=== PATIENT | female | born 1935 | race Caucasian/White ===

== ENCOUNTER 2023-07-20 17:19 | Inpatient (IN) | payer MEDICARE, MEDICAID, SELFPAY ==
[2023-07-20 12:48] VITALS: BP 168/78; BMI 16.8
--- NOTE | 2023-07-20 13:52 | ED.GENMED ---
History of Present Illness
General
Chief Complaint: Fever
Source: career development associate
Time Seen by Provider: 07/20/23 13:24
Travel History
Have you had any contact with someone who has COVID-19?: Unable to Answer
Do you have any symptoms of coronavirus? Fever > 100 degrees, chills, cough, shortness of breath, sore throat, loss of taste or smell, muscle aches, or headache?: Unable to Answer
History of Present Illness
History of Present Illness:
87-year-old female presenting to the ER from family and friends with her nurse and caregiver for evaluation of a fever, cough and shortness of breath that started over the last 36 hours. Patient was treated for urinary tract infection with Bactrim
for the last 10 days and finished this antibiotic on Thursday. No known sick contacts. Patient unable to provide any history secondary to baseline mental status. Staff reports patient is right around her baseline but does seem a little bit more
agitated than usual.
Past History
Past History
ED Past Medical History: Psychiatric (Dementia) and Other (Mild mental retardation, major depression, anorexia in remission , subdural hematoma)
ED Past Surgical History: Tonsilectomy and Other
Social History
Tobacco: Non-smoker
Alcohol: None
Drug: None
Personal: Other
Living: assisted living
Employment: Not employed
Family History
Family History: Hypertension
Review of Systems
Review of Systems
All Other Systems: ROS reviewed and negative except as documented in HPI and ROS
Phy Exam
Physical Exam
Physical Exam:
GENERAL: Alert , Intermittent nonproductive cough noted, hot to the touch
EYE: conjunctiva clear
NECK: Supple,
ENT: o/p clr, mmm.
CARDIAC: Tachycardic rate and rhythm, no murmur
LUNGS: Clear breath sounds bilaterally, n tachypneic, no wheezes/rales/rhonchi
NEUROLOGICAL: Alert but does not answer questions
SKIN: Warm and dry, skin intact.
MUSCULOSKELETAL: well perfused.
PSYCH: Unable to assess
Scores
Heart Failure Risk
Heart Failure Risk Score: Not Applicable
Heart Score for Chest Pain Patients
STEMI patient?: Not applicable
Withdrawal Assessment of Alcohol
Withdrawal Assessment Completed?: Not applicable
Course
Orders/Labs/Results
Orders:
Orders
07/20/23 13:14
Electrocardiogram (*1) Urgent
Reason for Study: Other
Other Reason for Exam: Possible Sepsis
07/20/23 13:15
EKG- Treatment ONCE
CR Chest Single View Urgent
Reason For Exam: suspected infection
07/20/23 13:42
Basic Metabolic Panel Urgent
COVID-19 Antigen Urgent
Source: Nasal Swab
Complete Blood Count/With Diff Urgent
Lactic Acid Q4H
Comment: ON ICE, CANCEL 2ND ORDER IF FIRST LACTIC ACID LEVEL <2
Blood Culture Q30M
JEET Source: Blood/Venous
Specimen Description:
Comment: FROM 2 SEPARATE SITES
Blood Culture Q30M
JEET Source: Blood/Venous
Specimen Description:
Comment: FROM 2 SEPARATE SITES
Influenza A+B Rapid Molecular Urgent
JEET Source: Nasal Swab
Specimen Description:
07/20/23 13:56
Acetaminophen 1000MG/100Ml [Ofirmev] 1,000 mg in 100 ml IV ONCE
Acetaminophen IV Indication:: No IA & No Enteral Access
07/20/23 14:51
CMP [Comprehensive Metabolic Panel] Urgent
07/20/23 15:14
Cefepime HCl [Maxipime] 2,000 mg IV NOW STA
07/20/23 15:49
Vancomycin 1 Gram/200 ml [Vancocin] 1 gram in 200 ml IV NOW
07/20/23 16:09
Admit/Transfer Patient As Directed
Co-Sign Provider:
Level of Care: Inpatient admission
Assign to:: Telemetry
Physician / Group: marcial
Diagnosis: acute hypoxia
Reason for Telemetry: Other
Other Reason for Telemetry: sepsis
Date to Stop Telemetry: 07/22/23
Time to Stop Telemetry: 11:00
Reason for Hospitalization: acute hypoxia
Expected length of stay greater than two midnights?: Yes
ELOS- Estimated Length of Stay in days: 3
I certify the patient meets the requirements for IP care: Yes
Troponin I Stat
07/20/23 16:11
Code Status As Directed
Resuscitation Status: Full Code
07/20/23 16:24
NT-proBNP Urgent
07/20/23 17:15
Lactic Acid Q4H
Comment: ON ICE, CANCEL 2ND ORDER IF FIRST LACTIC ACID LEVEL <2
07/22/23 11:00
DC Protocol for Telemetry ONCE
Abnormal Lab Results
07/20/23 07/20/23
13:42 14:51
WBC 18.6 H 10^3/uL
(4.8-10.8)
RBC 3.93 L 10^6/uL
(4.20-5.40)
Hct 35.8 L %
(37.0-47.0)
MPV 12.5 H fL
(7.4-10.4)
Abs Immat Gran (auto) 0.1 H 10^3/uL
(0-0.05)
Absolute Neuts (auto) 16.9 H 10^3/uL
(1.4-6.5)
Absolute Lymphs (auto) 0.6 L 10^3/uL
(1.2-3.4)
Absolute Monos (auto) 0.9 H 10^3/uL
(0.1-0.6)
Neutrophils % 91.0 H %
(42.2-75.2)
Lymphocytes % 3.2 L %
(20.5-51.1)
BUN 25 H mg/dl 25 H mg/dl
(7-17) (7-17)
Glucose 123 H mg/dl 157 H mg/dl
(70-99) (70-99)
07/20/23 13:42
07/20/23 14:51
Vital Signs
Initial and Last Documented VS:
Initial Vital Signs
Temp Pulse Resp BP Pulse Ox
101.1 F H 110 16 168/78 86
07/20/23 12:48 07/20/23 12:48 07/20/23 12:48 07/20/23 12:48 07/20/23 12:48
Last Documented Vital Signs
Temp Pulse Resp BP Pulse Ox
101.1 F H 105 21 168/78 95
07/20/23 12:48 07/20/23 16:15 07/20/23 16:15 07/20/23 12:48 07/20/23 16:15
MDM/Problems Addressed
Differential Diagnosis Includes:
COVID, flu, pneumonia, aspiration, recurring UTI, bacteremia
MDM/Problems Addressed:
87-year-old female presenting emergency department for evaluation of fever, cough and reported shortness of breath. Pulse ox in triage was noted to be 86% on room air and patient was placed on 2 L via nasal cannula which is around 92 to 93% on my
exam. Patient is somewhat agitated but consolable by caregiver and nurse. She is febrile here so we will treat with Ofirmev as patient is not able to tolerate p.o. Concern for possible aspiration. Chest x-ray ordered. Anticipate admission.
Chronic conditions affecting care: Neurological disorder
Acute Exacerbation and/or Progression of Chronic Illness: Neurological disorder
*Radiology
Radiology exam reviewed: preliminary read by ED provider (TANYA greenwood)
*Pulse Oximetry
Patient hypoxic: yes
*EKG
Interpreted by ED Provider?: Yes
Heart Rate: 119
Rate: tachycardiac
Rhythm: sinus and PVC's
*Critical Care Note
Total Time (30-74mins, 75-104mins- exclusive of procedures): Not Applicable
Patient Management
Discussion with other providers: Hospitalist
Escalation/DeEscalation of care consider admission/obs:
Chest x-ray shows a right lower lobe pneumonia. Given her hypoxia combined with fever and leukocytosis with a leftward shift decision was ultimately made to admit patient with IV antibiotics and supportive care with oxygen. Hospitalist team is
aware and accepts for continued evaluation and treatment.
ED Attending Note
-
Portions of this chart may have been created with voice recognition software.� Occasional wrong word or��sound alike� substitutions may have occurred due to the inherent limitations of voice recognition software.
Discharge Plan
Departure
Patient Disposition: Admit
Date of Disposition: 07/20/23
Time of Disposition: 15:14
Presentation/result/management discussed w/ accepting MD/DO: Hospitalist
Discharge Problem:
Pneumonia, Hypoxia
Interventions
Interventions:
*Risk Screen - Suicide Last Done: 07/20/23 14:40
*General Assessment Last Done: 07/20/23 12:48
*Neglect/Abuse Screening Last Done: 07/20/23 12:48
*ED COVID-19 Vaccine History Last Done: 07/20/23 12:48
ED- Neurological Assessment Last Done: 07/20/23 13:07
ED-Skin Assessment Last Done: 07/20/23 13:07
[2023-07-20 13:54] LABS: % Basophils 0.3 % (0-2); % Eosinophils 0.4 % (0-6); % Immature Granulocytes 0.4 % (0-0.5); % Lymphocytes 3.2 % (20.5-51.1); % Monocytes 4.7 % (1.7-9.3); Absolute Basophils 0.1 10^3/uL (0-0.2); Absolute Eosinophils 0.1 10^3/uL (0-0.7); Absolute Immature Granulocytes 0.1 10^3/uL (0-0.05); Absolute Lymphocytes 0.6 10^3/uL (1.2-3.4); Absolute Monocytes 0.9 10^3/uL (0.1-0.6); Absolute Neutrophils 16.9 10^3/uL (1.4-6.5); Hematocrit 35.8 % (37.0-47.0); Hemoglobin 12.1 g/dL (12.0-16.0); Mean Corp Hgb Conc. 33.8 g/dL (33.0-37.0); Mean Corpuscular Hgb 30.8 pg (27.0-31.0); Mean Corpuscular Volume 91.1 fL (81.0-99.0); Mean Platelet Volume 12.5 fL (7.4-10.4); Nucleated Red Blood Cells % 0 %; Platelet Count 203 10^3/uL (130-400); Red Blood Cell Count 3.93 10^6/uL (4.20-5.40); Red Cell Dist. Width 13.6 % (11.5-14.5); White Blood Cell Count 18.6 10^3/uL (4.8-10.8)
[2023-07-20] MEDS: OFIRMEV 100 IV (14:04)
[2023-07-20 14:09] LABS: COVID-19 Antigen Negative (Negative)
[2023-07-20 14:15] LABS: Blood Urea Nitrogen 25 mg/dl (7-17); Calcium 9.5 mg/dl (8.4-10.2); Carbon Dioxide 27 mmol/L (22-30); Chloride 107 mmol/L (98-107); Estimated Creatinine Clearance 33 ml/min; Glucose 123 mg/dl (70-99); eGFR > 60.00
[2023-07-20 14:41] LABS: Sodium 139 mmol/L (135-145)
[2023-07-20 15:33] LABS: ALT (SGPT) 18 U/L (0-35); AST (SGOT) 28 U/L (14-36); Albumin 3.6 g/dl (3.5-5.0); Alkaline Phosphatase 74 U/L (38-126); Blood Urea Nitrogen 25 mg/dl (7-17); Calcium 9.3 mg/dl (8.4-10.2); Carbon Dioxide 25 mmol/L (22-30); Chloride 107 mmol/L (98-107); Estimated Creatinine Clearance 29 ml/min; Glucose 157 mg/dl (70-99); Potassium 4.6 mmol/L (3.5-5.1); Sodium 139 mmol/L (135-145); Total Bilirubin 0.5 mg/dl (0.2-1.3); Total Protein 6.8 g/dl (6.3-8.2); eGFR > 60.00
--- NOTE | 2023-07-20 15:44 | HPS.HSE ---
Family Physician
-
Family Physician: INTERVIEWE UNKNOWN - PT NOT
Chief Complaint
-
cough
fever
History of Present Illness
87-year-old female with PMH for dementia, MR, depression, subdural hematoma presented to us with fever, cough. Patient finished a course of Bactrim on Thursday for UTI . Patient was noted agitated since Thursday night . On Thursday she had a fever of
101. Worsening agitation. Patient was also noted to have cough. Surgical Pathologist noticed wheezing. Review of system limited. History obtained from sealer aircraft.
Patient was hypoxic on arrival. Initiated on 2 L chest x-ray with pneumonia. Patient received Maxipime and Vanco in the ER. Admitting for further management
Medical History
Past Medical History
Past Medical History: Reports Other
Additional Past Medical History:
History of ductal carcinoma of breast
Constipation
Anorexia
Depression
Mild mental retardation
Past Surgical History: Reports Other
Additional Past Surgical History:
Right breast mastectomy
Tonsillectomy
Social History
Tobacco: Non-smoker
Alcohol: None
Drug: None
Family History
Family History: Not pertinent
Allergies / Home Medications
Allergies reflects when Allergies were last updated in [facility].
Home Medications with original date entered in [facility]
Allergy/Medication List:
Allergies
Allergy/AdvReac Type Severity Reaction Status Date / Time
No Known Allergies Allergy Verified 07/20/23 13:06
Home Medications
ascorbic acid (vitamin C) 500 mg tablet (Vitamin C) 500 mg PO DAILY 11/18/16
calcium carbonate 500 mg-vitamin D3 5 mcg (200 unit) tablet (Oyster Shell Calcium-Vitamin D3) 0.5 ea PO QID 11/18/16
docusate sodium 100 mg capsule 100 mg PO BID 11/18/16
donepezil 5 mg tablet 5 mg PO HS 11/18/16
guaifenesin 600 mg tablet, extended release 12 hr (Mucinex) 600 mg PO BIDPRN PRN congestion 11/18/16
lorazepam 0.5 mg tablet 0.5 mg PO HS 11/18/16
olanzapine 2.5 mg tablet 5 mg PO QPM 11/18/16
paroxetine HCl 20 mg tablet 20 mg PO DAILY@1600 11/18/16
salicylic acid-sulfur 2 %-2 % shampoo (Sebex) 1 applic topical DAILYPRN PRN scalp 11/18/16
acetaminophen 325 mg tablet (Tylenol) 650 mg PO Q4HPRN PRN MILD PAIN 07/20/23
carboxymethylcellulose 0.5 %-glycerin 0.9 % eye drops (Refresh Optive) 1 drp BOTH EYES 5/D PRN DRY EYE 07/20/23
dextromethorphan-guaifenesin 10 mg-100 mg/5 mL oral syrup 10 ml PO Q4HPRN PRN COUGH 07/20/23
polyethylene glycol 3350 17 gram oral powder packet (Miralax) 17 g PO DAILYPRN PRN CONSTIPATION 07/20/23
sulfamethoxazole 800 mg-trimethoprim 160 mg tablet (Bactrim DS) 1 tab PO BID 07/20/23
Review of Systems
-
Constitutional: Reports Fever
Respiratory: Reports No Symptoms and Cough
Physical Exam
Vital Signs
Vital Signs
Temp Pulse Resp BP Pulse Ox
101.1 F H 108 28 168/78 97
07/20/23 12:48 07/20/23 15:00 07/20/23 15:00 07/20/23 12:48 07/20/23 15:00
Physical Exam
General: Well Developed, Well Nourished and No Apparent Distress
HEENT: NormoCephalic, Moist mucous membranes and Atraumatic
Respiratory: Clear
Cardiac: S1/S2 and Regular Rhythm; No Murmur or Rub
GI: Soft, Non Tender, Non Distended and Normal Bowel Sounds; No Organomegaly
Rectal: Deferred by Provider
Musculoskeletal: No Clubbing, No Cyanosis and No Edema
Skin: No Rash
Neuro: AO x 3 and Nonfocal/grossly intact
Psych: Calm
Laboratory Results
-
07/20/23 13:42
07/20/23 14:51
Laboratory Results
Lactic Acid 2.0 mmol/L (0.7-2.0) 07/20/23 13:42
Total Bilirubin 0.5 mg/dl (0.2-1.3) 07/20/23 14:51
AST 28 U/L (14-36) 07/20/23 14:51
ALT 18 U/L (0-35) 07/20/23 14:51
Alkaline Phosphatase 74 U/L (38-126) 07/20/23 14:51
Data Reviewed
-
Lab Data: Labs Reviewed by me
Impression/Plan
-
#acute hypoxic respiratory failure likely from right lower lobe pneumonia likely aspiration
-sepsis as evident by wbc 18.6, temp 101.1
-covid negative, flu negative
-chest x ray with Probable mild right lower lobe atelectasis versus scarring. Developing pneumonia not excluded. New.Mild cardiomegaly. Progressed.
-blood culture sent from ER
-IV cefepime and Maxipime continued
-Tylenol as needed for fever
-Obtain MRSA
-Continue supplemental oxygen to keep sat greater than 92
-Wean as tolerated
-Speech consulted
-nebs prn for sob/wheezing
# Mild cardiomegaly
-Obtain BNP
-Obtain echocardiogram
-Obtain Trope
# Dementia
-Aricept continued
-One-to-one in place
# depression
-Lorazepam, olanzapine, Paxil continued
# DVT prophylaxis
-Lovenox
# CODE STATUS
-Full code
[2023-07-20] MEDS: MAXIPIME 2000 MG IV (16:30)
[2023-07-20 17:09] LABS: NT-proBNP 403 pg/ml
[2023-07-20] MEDS: VANCOCIN 200 IV (17:10)
--- NOTE | 2023-07-20 18:09 | W.PN.UPDATE ---
Update Note
Progress Note Update
This note serves as an addendum to the H&P by SAM Reilly, on July 20, 2023.
87-year-old female with past medical history for dementia, MR, depression, subdural hematoma presented with fever and cough. Patient had just finished a course of Bactrim 3 days ago for urinary tract infection. Patient was noted to be agitated for
the past 2-3 days. Two days ago, patient had a fever of 101 F. Worsening agitation. Patient was also noted to have cough. Oncology Registrar noticed wheezing. Review of system limited. History obtained from customer experience specialist.
Patient was hypoxic on arrival. Initiated on 2 L oxygen with chest x-ray with possible pneumonia in the right lower lobe. Patient received Maxipime and Vanco in the ER.
Vitals
Temp elevated at 101.1 F
HR intermittently tachycardic
BP okay
Mildly tachypneic
Oxygen saturation in the 90s on 4 L
Physical Exam
General: Well Developed, Well Nourished and No Apparent Distress
HEENT: Normocephalic, Moist mucous membranes
Respiratory: Clear
Cardiac: S1/S2 and Regular Rhythm
GI: Soft, Non Tender, Non Distended and Normal Bowel Sounds
Musculoskeletal: No Cyanosis and No Edema
Skin: Warm. Dry.
Neuro: AO x 3 and Nonfocal/grossly intact
Psych: Calm
Assessment/Plan
#acute hypoxic respiratory failure likely from right lower lobe pneumonia likely aspiration
#Suspected sepsis
-covid negative, flu negative
-chest x ray as per radiologist's report with Probable mild right lower lobe atelectasis versus scarring. Developing pneumonia not excluded. New.Mild cardiomegaly. Progressed.
-Follow blood cultures
-IV cefepime and Vancomycin continued
-Tylenol as needed for fever
-Obtain MRSA
-Continue supplemental oxygen to keep sat greater than 92
-Wean as tolerated
-Speech consulted
-nebs prn for sob/wheezing
-Check CT for PE given tachycardia
# Mild cardiomegaly - progressed -- as per CRX
-Obtain BNP
-Obtain echocardiogram
-Check troponins
# Dementia
-Aricept continued
-One-to-one in place
# depression
-Lorazepam, olanzapine, Paxil continued
# DVT prophylaxis
-Lovenox
# CODE STATUS
-Full code
[2023-07-20 18:45] LABS: Lactic Acid 1.5 mmol/L (0.7-2.0)
[2023-07-20 19:00] VITALS: BMI 15.6
[2023-07-20 19:15] VITALS: BP 148/81
--- NOTE | 2023-07-20 19:28 | PHA.VAN.IN ---
Assessment
- Assessment
Renal Function: Appears similar to baseline
Concomitant Antimicrobials: CEFEPIME
- Previous Dosing Experience
Previous Regimen: NONE
Plan
- Plan
Initial / Loading Dose: 1GM
Maintenance Regimen: DOSING BY RANDOM LEVELS
Monitoring: RANDOM VANCOMYCIN LEVEL 07/21/23 AM
Pharmacokinetics Vancomycin I
- -
Patient Age: 87
Patient Sex: Female
Vancomycin Day #: 1
Indication: Pulmonary/Respiratory (SEPSIS)
Requesting Provider: MI
Height / Weight:
Height 5 ft 3 in
Actual Weight 43.1 kg
- Vital Signs / Lab Results
Temp Pulse Resp BP Pulse Ox
101.1 F H 81 18 168/78 96
07/20/23 12:48 07/20/23 18:36 07/20/23 18:36 07/20/23 12:48 07/20/23 18:36
Lab Results - Hematology
07/20/23
13:42
WBC 18.6 H
Lab Results - Chemistry
07/20/23 07/20/23
13:42 14:51
BUN 25 H 25 H
Creatinine 0.8 0.9
Estimated Creat Clear 33 29
Albumin Cancelled 3.6
07/20/23 07/20/23
13:42 18:28
Lactic Acid 2.0 1.5
Microbiology Results
07/20/23 13:42 Influenza Types A & B (GARETH) - Final
Nasal Swab Negative for Influenza A & B, NAAT
Negative results must be combined with clinical observations
and patient history.
Nucleic Acid Amplification test (NAAT)performed on the
[employer] platform.
[2023-07-20] MEDS: LOVENOX 30 MG SC (19:48)
[2023-07-20] MEDS: ZYPREXA 5 MG PO (19:50)
[2023-07-20] MEDS: COLACE 100 MG PO (19:50)
[2023-07-20 20:58] LABS: Troponin I 0.022 ng/ml
[2023-07-20] MEDS: ATIVAN 0.5 MG PO (21:47)
[2023-07-20] MEDS: ARICEPT 5 MG PO (21:48)
[2023-07-20 23:41] VITALS: BP 112/70
[2023-07-21 04:07] VITALS: BP 175/60
[2023-07-21] MEDS: STERILE WATER FOR INJECTION 10 ML IV ×2 (04:54→16:25)
[2023-07-21] MEDS: MAXIPIME 1000 MG IV ×2 (04:54→16:25)
[2023-07-21 06:27] LABS: Hemoglobin 11.6 g/dL (12.0-16.0); Mean Corp Hgb Conc. 34.1 g/dL (33.0-37.0); Mean Corpuscular Hgb 30.3 pg (27.0-31.0); Mean Corpuscular Volume 88.8 fL (81.0-99.0); Red Blood Cell Count 3.83 10^6/uL (4.20-5.40); Red Cell Dist. Width 13.5 % (11.5-14.5); White Blood Cell Count 10.2 10^3/uL (4.8-10.8)
[2023-07-21 06:52] LABS: Blood Urea Nitrogen 17 mg/dl (7-17); Carbon Dioxide 22 mmol/L (22-30); Chloride 112 mmol/L (98-107); Estimated Creatinine Clearance 41 ml/min; Glucose 82 mg/dl (70-99); Potassium 3.9 mmol/L (3.5-5.1); Sodium 137 mmol/L (135-145); Vancomycin Random 9.5 ug/ml; eGFR > 60.00
--- NOTE | 2023-07-21 08:19 | PHA.VAN.FU ---
Vancomycin Assessment / Plan
- Assessment
Renal Function: SCR Decreasing
WBC's are: WNL
Concomitant Antimicrobials: cefepime
- Assessment - Therapeutic Drug Monitoring
Random Level: 9.5 - drawn ~12.5H after initial dose of 1000mg
- Dosing Plan
Dosing by Level: Re-dose today (Vanc 750mg)
Patient may have enhanced clearance due to BMI < 20 compared to population PK
Will trial 750mg x1 today based on IBW and CrCl(IBW) ~53 ml/min predicting AUC 436, trough 10 with 750mg Q24H
Will follow as dose by level for now, given age, to ensure clearing appropriately with dosing based on IBW
- Monitoring Plan
Random Level: 07/21 06
- Follow Up
Pharmacy will continue to follow.
Vancomycin Follow UP
- -
Patient Age: 87
Patient Sex: Female
Vancomycin Day #: 2
Indication: Pulmonary/Respiratory
Requesting Provider: Nicole Will
Pertinent Antimicrobial Allergies:
NKDA
Height / Weight:
Height 5 ft 3 in
Actual Weight 40.001 kg
IBW in k.4
Pertinent Past Medical History: BMI ~15.6
- Vital Signs / Lab Results
Temp Pulse Resp BP Pulse Ox
97.2 F 75 18 175/60 93
07/21/23 04:07 07/21/23 04:07 07/21/23 04:07 07/21/23 04:07 07/21/23 04:07
Lab Results - Hematology
07/20/23 07/21/23
13:42 05:34
WBC 18.6 H 10.2
Lab Results - Chemistry
07/20/23 07/20/23 07/21/23
13:42 14:51 05:34
BUN 25 H 25 H 17
Creatinine 0.8 0.9 0.6
Estimated Creat Clear 33 29 41
Albumin Cancelled 3.6
07/20/23 07/20/23
13:42 18:28
Lactic Acid 2.0 1.5
Microbiology Results
07/21/23 05:18 Legionella Urinary Antigen - Final
Urine Negative for Legionella pneumophila Serogroup 1 antigen.
A negative result does not rule out the possiblity of
Legionella infection due to other serogroups or species of
Legionella. Clinical correlation is recommended.
07/20/23 13:42 Influenza Types A & B (GARETH) - Final
Nasal Swab Negative for Influenza A & B, NAAT
Negative results must be combined with clinical observations
and patient history.
Nucleic Acid Amplification test (NAAT)performed on the
[employer] platform.
Therapeutic Drug Monitoring
Random Vancomycin 9.5 ug/ml 07/21/23 05:34
--- NOTE | 2023-07-21 08:30 | PTOTSP ---
Speech Language Pathology
Pt seen for clinical bedside swallow evaluation. Pt moving constantly, blocking caregiver, but then opening mouth. Caregiver provided tsps of puree, up to 3 at a time before swallow initiated, which she stated is typical. Audible swallow
frequently noted, likely indicative of incoordination. Caregiver reported she drinks from a cup at home, so she provided liquid via cup. Frequently noted to pour into pt's oral cavity without active acceptance. Cough x2. Trialed via tsp with
improved tolerance.
Pt is at a high risk for aspiration. Per caregiver, pt has not had PNA prior to current admit. She typically does not cough with P.O. but was coughing occasionally with P.O. in the last 2-3 weeks. Question whether this was related to
deconditioning from UTI. Will trial diet with increased strategies. Will consider NPO as needed, but pt would not be appropriate for PEG tube and this would significantly affect quality of life. Not appropriate for VSE given contractures and
constant movement with P.O. intake.
Recommend:
(1) Trial baseline diet of IDDSI Level 4 (Puree) and Moderately Thick Liquids VIA TSP ONLY
(2) Aspiration precautions: sit as upright as possible, slow rate, liquids via tsp, ensure pt swallows prior to next bite/sip
(3) Meds in puree
(4) JUSTOWRITER OPERATOR to continue to follow
[2023-07-21] MEDS: VANCOCIN 150 IV (10:09)
[2023-07-21] MEDS: COLACE 100 MG PO ×2 (10:09→20:19)
[2023-07-21 10:55] VITALS: BP 143/60
--- NOTE | 2023-07-21 14:16 | CM ---
Patient from [facility]
Patient seen bedside with nurse Fidelia Scott and Juana (caregiver) from [facility].
Patient is total care.
Patient is lifted to or recliner.
Patient does receive therapy [facility], will need a script on d/c.
PCP: Dr Henrik Ridley
Pharmacy: [facility]
Plan: Back to [facility].
Prior to returning to facility clinicals will need to be be faxed to Fidelia at [facility] at F# [phone]
Tamara phone # [phone] or main number [phone]
No weekend admissions.
[2023-07-21 15:00] VITALS: BP 140/76
--- NOTE | 2023-07-21 15:55 | W.PN.HOSP.TC ---
Today's Communication/Plan
-
Doing better
Continue antibiotics
Assessment / Plan
Assessment / Plan
Physical Exam
General: Not in acute distress
HEENT: Normocephalic
Respiratory: Clear to Auscultation Bilaterally
Cardiac: S1/S2 and Regular Rhythm
GI: Soft, Non Tender, Non Distended and Normal Bowel Sounds
Musculoskeletal: No Cyanosis and No Edema
Skin: Warm. Dry.
Neuro: AO x 3 and Nonfocal/grossly intact
Psych: Calm
Assessment/Plan
#acute hypoxic respiratory failure likely from right lower lobe pneumonia likely aspiration
#Suspected sepsis
-covid negative, flu negative
-chest x ray as per radiologist's report with Probable mild right lower lobe atelectasis versus scarring. Developing pneumonia not excluded. New.Mild cardiomegaly. Progressed.
-Follow blood cultures
-Follow-up MRSA screen
-IV cefepime and Vancomycin continued
-Tylenol as needed for fever
-Continue supplemental oxygen to keep sat greater than 92
-Wean as tolerated
-Speech consulted, recommendations appreciated
-nebs prn for sob/wheezing
# Mild cardiomegaly - progressed -- as per CRX
-BNP 403 -- does not suggest acute heart failure
-Obtain echocardiogram
-Troponin negative
# Dementia
-Aricept continued
-One-to-one in place
# depression
-Lorazepam, olanzapine, Paxil continued
# DVT prophylaxis
-Lovenox
# CODE STATUS
-Full code
Anticipated Discharge: 24 - 48 hours
Subjective/Interval History
-
Date of Service: July 21, 2023
Patient was seen and examined. She appeared more alert today, patient's fire support specialist was present in the room and said that patient appeared to be doing much better.
Objective Data
-
Labs:
Laboratory Results
07/21/23
05:34
WBC 10.2
Hgb 11.6 L
Hct 34.0 L
Plt Count
Sodium 137
Potassium 3.9
Chloride 112 H
Carbon Dioxide 22
BUN 17
Creatinine 0.6
Glucose 82
Calcium 9.0
Vital Signs:
Vital Signs
Temp Pulse Resp BP Pulse Ox
97.9 F 68 19 140/76 97
07/21/23 15:00 07/21/23 15:00 07/21/23 15:00 07/21/23 15:00 07/21/23 15:00
[2023-07-21] MEDS: PAXIL 20 MG PO (16:25)
[2023-07-21] MEDS: ZYPREXA 5 MG PO (17:54)
[2023-07-21] MEDS: LOVENOX 30 MG SC (17:55)
[2023-07-21 19:30] VITALS: BP 108/54
[2023-07-21] MEDS: ARICEPT 5 MG PO (20:20)
[2023-07-21] MEDS: ATIVAN 0.5 MG PO (20:20)
[2023-07-21 23:29] VITALS: BP 122/70
[2023-07-22 03:05] VITALS: BP 147/73
[2023-07-22] MEDS: MAXIPIME 1000 MG IV (03:25)
[2023-07-22] MEDS: STERILE WATER FOR INJECTION 10 ML IV (03:26)
[2023-07-22 06:00] LABS: % Basophils 0.5 % (0-2); % Eosinophils 5.5 % (0-6); % Immature Granulocytes 0.3 % (0-0.5); % Lymphocytes 11.7 % (20.5-51.1); Absolute Basophils 0.1 10^3/uL (0-0.2); Absolute Eosinophils 0.5 10^3/uL (0-0.7); Absolute Lymphocytes 1.1 10^3/uL (1.2-3.4); Absolute Monocytes 0.9 10^3/uL (0.1-0.6); Absolute Neutrophils 6.6 10^3/uL (1.4-6.5); Hematocrit 34.4 % (37.0-47.0); Hemoglobin 11.5 g/dL (12.0-16.0); Mean Corp Hgb Conc. 33.4 g/dL (33.0-37.0); Mean Corpuscular Hgb 30.2 pg (27.0-31.0); Mean Corpuscular Volume 90.3 fL (81.0-99.0); Mean Platelet Volume 12.8 fL (7.4-10.4); Nucleated Red Blood Cells % 0 %; Platelet Count 177 10^3/uL (130-400); Red Blood Cell Count 3.81 10^6/uL (4.20-5.40); Red Cell Dist. Width 13.4 % (11.5-14.5); White Blood Cell Count 9.1 10^3/uL (4.8-10.8)
[2023-07-22 06:08] LABS: Vancomycin Random 9.1 ug/ml
[2023-07-22 06:22] LABS: Blood Urea Nitrogen 18 mg/dl (7-17); Glucose 92 mg/dl (70-99)
[2023-07-22 06:23] LABS: Calcium 9.2 mg/dl (8.4-10.2); Carbon Dioxide 26 mmol/L (22-30); Chloride 107 mmol/L (98-107); Estimated Creatinine Clearance 35 ml/min; Magnesium 2.2 mg/dl (1.6-2.3); Potassium 4.5 mmol/L (3.5-5.1); Sodium 138 mmol/L (135-145); eGFR > 60.00
[2023-07-22] MEDS: COLACE 100 MG PO ×2 (09:02→20:15)
[2023-07-22 11:00] VITALS: BP 125/73
--- NOTE | 2023-07-22 12:07 | CM ---
Addendum entered by Matilda Evans 07/22/23 16:23:
TC back form [facility], willing to accept patient back tomorrow.
IMM reviewed with Fidelia via phone 4:20 pm.
Addendum entered by Matilda Evans 07/22/23 12:53:
Left vm re possible d/c back today, need to know if patient is accepted.
Await TCB from [facility].
Original Note:
TC from [facility] requesting updates.
Left VM for [facility]ia and Clinicals faxed.
Patient continues on IV anbx.
No skilled needs.
Private manager wound care in room.
Plan: Back to [facility].
Prior to returning to facility clinicals will need to be be faxed to Fidelia at [facility] at F# [phone]
Tamara phone # [phone] or main number [phone]
No weekend admissions.
--- NOTE | 2023-07-22 14:49 | W.PN.HOSP.TC ---
Addendum entered and electronically signed by Homer Diaz MD 07/22/23 14:58:
Switch antibiotics to Cefdinir 300mg PO BID.
Original Note:
Today's Communication/Plan
-
Continue antibiotics
Overall doing better
Discharge planning, showcase maker is working on it
Assessment / Plan
Assessment / Plan
Physical Exam
General: Not in acute distress
HEENT: Normocephalic
Respiratory: Clear to Auscultation Bilaterally
Cardiac: S1/S2 and Regular Rhythm
GI: Soft, Non Tender, Non Distended and Normal Bowel Sounds
Musculoskeletal: No Cyanosis and No Edema
Skin: Warm. Dry.
Neuro: Baseline confusion. Nonfocal/grossly intact
Psych: Apparent dementia
Assessment/Plan
#acute hypoxic respiratory failure likely from right lower lobe pneumonia likely aspiration
#Suspected sepsis
-covid negative, flu negative
-chest x ray as per radiologist's report with Probable mild right lower lobe atelectasis versus scarring. Developing pneumonia not excluded. New.Mild cardiomegaly. Progressed.
-Follow blood cultures
-MRSA screen negative --> therefore stopped IV Vancomycin
-Tylenol as needed for fever
-Continue supplemental oxygen to keep sat greater than 90
-Wean as tolerated
-Speech consulted, recommendations appreciated
-nebs prn for sob/wheezing
# Mild cardiomegaly - progressed -- as per CRX
-BNP 403 -- does not suggest acute heart failure
-Echocardiogram noted
-Troponin negative
# Dementia
-Aricept continued
-One-to-one in place
# depression
-Lorazepam, olanzapine, Paxil continued
# DVT prophylaxis
-Lovenox
# CODE STATUS
-Full code
Anticipated Discharge: Within 24 hours
Subjective/Interval History
-
Date of Service: July 22, 2023
Patient was seen and examined. She remains altered, I spoke to reception who said patient is much improved from when she initially came in, and she mentioned that this kind of confusion is her baseline.
Objective Data
-
Labs:
Laboratory Results
07/22/23
05:27
WBC 9.1
Hgb 11.5 L
Hct 34.4 L
Plt Count 177
Sodium 138
Potassium 4.5
Chloride 107
Carbon Dioxide 26
BUN 18 H
Creatinine 0.7
Glucose 92
Calcium 9.2
Vital Signs:
Vital Signs
Temp Pulse Resp BP Pulse Ox
98.1 F 78 18 125/73 95
07/22/23 12:57 07/22/23 11:00 07/22/23 11:00 07/22/23 11:00 07/22/23 11:00
I&O
07/21/23 07/22/23 07/23/23
06:59 06:59 06:59
Intake Total 120 / 120
Balance 120 / 120
[2023-07-22 16:00] VITALS: BP 118/69
[2023-07-22 16:52] VITALS: BMI 15.6
[2023-07-22] MEDS: ZYPREXA 5 MG PO (17:34)
[2023-07-22] MEDS: LOVENOX 30 MG SC (17:34)
[2023-07-22] MEDS: PAXIL 20 MG PO (17:34)
[2023-07-22] MEDS: ARICEPT 5 MG PO (20:15)
[2023-07-22] MEDS: OMNICEF 300 MG PO (20:15)
[2023-07-22] MEDS: ATIVAN 0.5 MG PO (20:15)
[2023-07-22 23:46] VITALS: BP 116/91
[2023-07-23 07:18] LABS: Hematocrit 33.4 % (37.0-47.0); Hemoglobin 11.1 g/dL (12.0-16.0); Mean Corp Hgb Conc. 33.2 g/dL (33.0-37.0); Mean Corpuscular Hgb 30.5 pg (27.0-31.0); Mean Corpuscular Volume 91.8 fL (81.0-99.0); Platelet Count 194 10^3/uL (130-400); Red Blood Cell Count 3.64 10^6/uL (4.20-5.40); Red Cell Dist. Width 13.3 % (11.5-14.5); White Blood Cell Count 7.2 10^3/uL (4.8-10.8)
[2023-07-23 07:30] VITALS: BP 141/80
[2023-07-23 07:37] LABS: Blood Urea Nitrogen 22 mg/dl (7-17); Calcium 8.8 mg/dl (8.4-10.2); Carbon Dioxide 26 mmol/L (22-30); Chloride 112 mmol/L (98-107); Estimated Creatinine Clearance 41 ml/min; Glucose 93 mg/dl (70-99); Sodium 140 mmol/L (135-145); eGFR > 60.00
[2023-07-23] MEDS: COLACE 100 MG PO (08:08)
[2023-07-23] MEDS: OMNICEF 300 MG PO (08:08)
--- NOTE | 2023-07-23 09:05 | CM ---
Addendum entered by Matilda Evans 07/23/23 12:28:
At Home rehab

Original Note:
Plan: Back to [facility] today
Prior to returning to facility clinicals will need to be be faxed to Fidelia at [facility] at F# [phone]
[facility] phone # [phone] or main number [phone]
Ambulance transport forms completed.
All new scripts via e-script to [facility] [address]
Ambulance transport time 1 pm. Left VM for Fidelia.
[facility]
Report to Fidelia at [phone], or main number [phone]
--- NOTE | 2023-07-23 09:29 | PTCARENOTE ---
Patient received with caregiver at bedside. Responds to name but speech is garbled at times and with random words. For d/c today at 1 pm .
--- NOTE | 2023-07-23 10:52 | W.PN.HOSP.TC ---
Today's Communication/Plan
-
Discharge today
Assessment / Plan
Assessment / Plan
Physical Exam
General: Not in acute distress
HEENT: Normocephalic
Respiratory: Clear to Auscultation Bilaterally
Cardiac: S1/S2 and Regular Rhythm
GI: Soft, Non Tender, Non Distended and Normal Bowel Sounds
Musculoskeletal: No Cyanosis and No Edema
Skin: Warm. Dry.
Neuro: Baseline confusion. Nonfocal/grossly intact
Psych: Apparent dementia
Assessment/Plan
#acute hypoxic respiratory failure likely from right lower lobe pneumonia likely aspiration
#Suspected sepsis
-covid negative, flu negative
-chest x ray as per radiologist's report with Probable mild right lower lobe atelectasis versus scarring. Developing pneumonia not excluded. New.Mild cardiomegaly. Progressed.
-Follow blood cultures
-MRSA screen negative --> therefore stopped IV Vancomycin
-Tylenol as needed for fever
-Saturating well on room air
-Wean as tolerated
-Speech consulted, recommendations appreciated
-nebs prn for sob/wheezing
-On discharge, switch to Augmentin 875 Q12H for 5 more days
# Mild cardiomegaly - progressed -- as per CRX
-BNP 403 -- does not suggest acute heart failure
-Echocardiogram noted
-Troponin negative
# Dementia
-Aricept continued
-One-to-one in place
# depression
-Lorazepam, olanzapine, Paxil continued
# DVT prophylaxis
-Lovenox
# CODE STATUS
-Full code
More than 30 minutes spent in discharge including
Final examination of the patient
Summarizing hospital stay
Instructions for continuing care to all relevant caregivers
Preparation of discharge records, prescriptions, and referral forms
Total time spent (in minutes): 36
Anticipated Discharge: Today
Subjective/Interval History
-
Date of Service: July 23, 2023
Patient was seen and examined. Respiratory Care Technician reported that patient has been eating and having normal bowel movements, no new significant issues reported.
Objective Data
-
Labs:
Laboratory Results
07/23/23
07:05
WBC 7.2
Hgb 11.1 L
Hct 33.4 L
Plt Count 194
Sodium 140
Potassium 4.0
Chloride 112 H
Carbon Dioxide 26
BUN 22 H
Creatinine 0.6
Glucose 93
Calcium 8.8
Vital Signs:
Vital Signs
Temp Pulse Resp BP Pulse Ox
98.6 F 65 17 141/80 96
07/23/23 07:30 07/23/23 07:30 07/23/23 07:30 07/23/23 07:30 07/23/23 07:30
I&O
07/22/23 07/23/23 07/24/23
06:59 06:59 06:59
Intake Total 120 / 120 740 / 740
Balance 120 / 120 740 / 740
--- NOTE | 2023-07-23 11:18 | W.DS.TRANS ---
DC Summary - Assignment Manager
-
Discharge Instructions:
Discharge Diagnosis/Procedures #Acute hypoxic respiratory failure likely from
right lower lobe pneumonia likely aspiration
#Suspected sepsis
#Mild cardiomegaly on chest x-ray
#Dementia
#Depression
#Echocardiogram (done due to report of
cardiomegaly on Chest X-Ray) results, as per
cardiology report:
'CONCLUSIONS
Left ventricle is small in size.
Normal left ventricular systolic function.
Left ventricular ejection fraction is 55-60%.
Mild concentric left ventricular hypertrophy.
Normal right ventricular size and function.
Indexed LA volume is within normal range (15-34
mL/m2).
Mild mitral regurgitation.
Mild aortic stenosis.
Peak gradient 19mmHg/Mean gradient 10mmHg -
using an LVOT of 1.9cm the
estimated aortic valve area is 1.8cm2.
Trace aortic regurgitation.
Mild tricuspid regurgitation.
Estimated pulmonary artery pressure of 20-25
mmHg assuming a right atrial
pressure of 3 mmHg.
Normal pericardium and pleura without evidence
of effusion.
The IVC is of normal size and demonstrates
normal respiratory variation.
No prior echocardiogram available for comparison
'
Diet Other diet
Additional Diets IDDSI Level 4 (Puree) and Moderately Thick
Liquids VIA TSP ONLY
Blood Work Repeat CBC, CMP and Magnesium within 1 week from
hospital discharge with your outpatient
physician's office
Other Services PT,OT,VN
Instructions:
Stand-Alone Forms:
Changes to Home Medications: Yes
Discharge Medications:
DC Medications w/original date entered in [employer]
ascorbic acid (vitamin C) 500 mg tablet (Vitamin C) 500 mg PO DAILY Supplement 11/18/16
calcium carbonate 500 mg-vitamin D3 5 mcg (200 unit) tablet (Oyster Shell Calcium-Vitamin D3) 0.5 ea PO QID Supplement 11/18/16
docusate sodium 100 mg capsule 100 mg PO BID Constipation 11/18/16
donepezil 5 mg tablet 5 mg PO HS Alzheimer's 11/18/16
guaifenesin 600 mg tablet, extended release 12 hr (Mucinex) 600 mg PO BIDPRN PRN congestion 11/18/16
lorazepam 0.5 mg tablet 0.5 mg PO HS Sleep 11/18/16
olanzapine 2.5 mg tablet 5 mg PO QPM Mental Health/Anxiety 11/18/16
paroxetine HCl 20 mg tablet 20 mg PO DAILY@1600 Depression 11/18/16
salicylic acid-sulfur 2 %-2 % shampoo (Sebex) 1 applic topical DAILYPRN PRN scalp 11/18/16
acetaminophen 325 mg tablet (Tylenol) 650 mg PO Q4HPRN PRN MILD PAIN 07/20/23
carboxymethylcellulose 0.5 %-glycerin 0.9 % eye drops (Refresh Optive) 1 drp BOTH EYES 5/D PRN DRY EYE 07/20/23
dextromethorphan-guaifenesin 10 mg-100 mg/5 mL oral syrup 10 ml PO Q4HPRN PRN COUGH 07/20/23
polyethylene glycol 3350 17 gram oral powder packet (Miralax) 17 g PO DAILYPRN PRN CONSTIPATION 07/20/23
amoxicillin 875 mg-potassium clavulanate 125 mg tablet 1 tab PO Q12H 5 days #10 tabs 07/23/23
Home Medication Changes
Amoxicillin-Pot Clavulanate is a new medication.
Bactrim stopped.
Pending Results: Yes
Additional Pending Results:
Final results of Microbiology studies/culture results from hospitalization.
Total time spent discharging patient (in min): 36
[2023-07-23 11:40] VITALS: BP 160/83
--- NOTE | 2023-07-26 11:56 | W.DCSUMMARY ---
Discharge Summary
Discharge Data
Date of Admission: 07/20/23
Date of Discharge: 07/26/23
Total time spent discharging patient (in min): 36
-
Pending Results: Yes
Additional Pending Results:
Final results of Microbiology studies/culture results from hospitalization.
Hospital Course
87-year-old female with past medical history for dementia, MR, depression, subdural hematoma presented with fever and cough, accompanied by patient's silo painter. Patient had just finished a course of Bactrim 3 days prior to presentation, for urinary
tract infection. Patient was noted to be agitated for the past 2-3 days prior to presentation and two days prior, patient had a fever of 101 F. Patient was admitted with hypoxia and suspected aspiration pneumonia and started on broad-spectrum
antibiotics. Given cardiomegaly on chest x-ray, echocardiogram was done for her shortness of breath, with results noted below (please see official echocardiogram report for more details). Her BNP level was not suggestive of any congestive heart
failure. Patient's agitation improved, patient's silo painter reported that patient's behavior had returned to baseline, and she was saturating oxygen well on room air. She was stable for discharge with Augmentin.
Discharge Plan
-
Patient Disposition: Assisted Living
Discharge Diagnosis/Procedures: #Acute hypoxic respiratory failure likely from right lower lobe pneumonia likely aspiration
#Suspected sepsis
#Mild cardiomegaly on chest x-ray
#Dementia
#Depression
#Echocardiogram (done due to report of cardiomegaly on Chest X-Ray) results, as per cardiology report:
'CONCLUSIONS
Left ventricle is small in size.
Normal left ventricular systolic function.
Left ventricular ejection fraction is 55-60%.
Mild concentric left ventricular hypertrophy.
Normal right ventricular size and function.
Indexed LA volume is within normal range (15-34 mL/m2).
Mild mitral regurgitation.
Mild aortic stenosis.
Peak gradient 19mmHg/Mean gradient 10mmHg - using an LVOT of 1.9cm the
estimated aortic valve area is 1.8cm2.
Trace aortic regurgitation.
Mild tricuspid regurgitation.
Estimated pulmonary artery pressure of 20-25 mmHg assuming a right atrial
pressure of 3 mmHg.
Normal pericardium and pleura without evidence of effusion.
The IVC is of normal size and demonstrates normal respiratory variation.
No prior echocardiogram available for comparison'
Condition: Fair
Diet: Other diet
Additional Diets: IDDSI Level 4 (Puree) and Moderately Thick Liquids VIA TSP ONLY
Blood Work: Repeat CBC, CMP and Magnesium within 1 week from hospital discharge with your outpatient physician's office
Other Services: VN, PT and OT
Activity Restrictions/Additional Instructions:
When eating and drinking, follow: aspiration precautions - sit as upright as possible, slow rate, liquids via tsp, ensure pt swallows prior to next bite/sip
Medications should be given in puree
Referrals:
UNKNOWN - PT NOT,INTERVIEWE [Family Provider] - in less than 1 week
Additional Discharge Medication Instructions: Amoxicillin-Pot Clavulanate is a new medication.
Bactrim stopped.
Prescriptions:
New
amoxicillin-pot clavulanate 875-125 mg tablet
1 tab PO Q12H 5 Days Qty: 10 0RF
Continued
donepezil 5 MG tablet
5 mg PO HS
olanzapine 2.5 MG tablet
5 mg PO QPM
lorazepam 0.5 MG tablet
0.5 mg PO HS
ascorbic acid (vitamin C) [Vitamin C] 500 MG tablet
500 mg PO DAILY
paroxetine HCl 20 MG tablet
20 mg PO DAILY@1600
docusate sodium 100 MG capsule
100 mg PO BID
calcium carbonate-vitamin D3 [Oyster Shell Calcium-Vit D3] 1 EACH tablet
0.5 ea PO QID
Sebex 118 ML shampoo
1 applic topical DAILYPRN PRN (Reason: scalp)
guaifenesin [Mucinex] 600 MG tablet extended release 12hr
600 mg PO BIDPRN PRN (Reason: congestion)
acetaminophen [Tylenol] 325 mg Tablet
650 mg PO Q4HPRN PRN (Reason: MILD PAIN)
polyethylene glycol 3350 [Miralax] 17 gram Powder In Packet
17 g PO DAILYPRN PRN (Reason: CONSTIPATION)
dextromethorphan-guaifenesin 10-100 mg/5 mL Syrup
10 ml PO Q4HPRN PRN (Reason: COUGH)
Refresh Optive 0.5-0.9 % Drops
1 drp BOTH EYES 5/D PRN (Reason: DRY EYE)
Discontinued
sulfamethoxazole-trimethoprim [Bactrim DS] 800-160 mg Tablet
1 tab PO BID
Patient Comments:
FOR 5 DAYS STARTING 07/15/23
Discharge Orders:
Discharge Patient (As Directed); Ordered 07/23/23
Ordered By: Homer Diaz
Discharge Date and Time
Discharge Date/Time: 07/23/23 13:07
Print Language: L[place]
== END 2023-07-23 13:07 | disposition home or self-care (01) | DRG 871 ==
LOC: 4 WEST ACU 17:19
PROVIDERS: Physician Assistant Medical; Registered Nurse; Student in an Organized Health Care Education/Training Program; ADMITTING PHYSICIAN Hospitalist; EMERGENCY PHYSICIAN Emergency Medicine
DX: A41.9 Sepsis, unspecified organism (principal); J69.0 Pneumonitis due to inhalation of food and vomit; J96.01 Acute respiratory failure with hypoxia; Z68.1 Body mass index [BMI] 19.9 or less, adult; J98.11 Atelectasis; F03.911 Unspecified dementia, unspecified severity, with agitation; I51.7 Cardiomegaly; F32.9 Major depressive disorder, single episode, unspecified; R63.0 Anorexia; F70 Mild intellectual disabilities; Z87.440 Personal history of urinary (tract) infections; Z85.3 Personal history of malignant neoplasm of breast; Z90.11 Acquired absence of right breast and nipple; Z11.52 Encounter for screening for COVID-19
CPT/HCPCS: 71045; 80048; 80053; 80202; 83605; 83735; 83880; 84484; 85025; 85027; 87040; 87070; 87449; 87502; 87811; 92610; 93005; 93306; 96374; 99285